=== PATIENT | female | born 1990 | race Caucasian/White ===

== ENCOUNTER 2019-01-25 02:26 | Outpatient (CLI) | payer BC, SELFPAY ==
[2019-01-25 02:49] VITALS: BMI 39.3
--- NOTE | 2019-02-02 08:14 | OB.TRI.NOTE ---
History of Present Illness Date of Service: 01/25/19 Was patient seen by the physician?: No Reason For Visit: DECREASED MOVEMENT Final SHAGGY: 03/12/19 Gestational age: 33w 3 days Allergies No Known Allergies Allergy (Verified 01/25/19 02:51) NST - FHR Rate Baby A Baseline: 135 bpm Variability:: Moderate Accelerations:: 15 x 15 Decelerations:: None NST Reactive:: Yes FHR Category:: Category I Uterine Activity:: irritability Impression/Plan 29-year-old primigravida at 33-3/7 weeks gestation for decreased movement. Nonstress test is reactive and reassuring. Discharge home with kick counts and to follow-up in the office as scheduled or as needed
== END 2019-01-25 04:00 | disposition home or self-care (01) ==
LOC: WPOUT 02:38 → WP 02:38
PROVIDERS: Referring Provider Advanced Practice Midwife; Visit Provider Advanced Practice Midwife
DX: O36.8130 Decreased fetal movements, third trimester, not applicable or unspecified (principal); Z3A.33 33 weeks gestation of pregnancy
CPT/HCPCS: 59025; 59050; 99218; G0378

== ENCOUNTER 2019-03-07 11:50 | Outpatient (CLI) | payer BC, SELFPAY ==
[2019-03-07 12:07] VITALS: BMI 37.9
--- NOTE | 2019-03-08 09:27 | OB.TRI.NOTE ---
- Problem List (1) Polyhydramnios affecting in third trimester Status: Acute History of Present Illness Date of Service: 03/07/19 Was patient seen by the physician?: No Reason For Visit: NST Date of Service: 03/07/19 Final SHAGGY: 03/12/19 Final SHAGGY Source: US <20 weeks Gestational age: 39 Weeks and 3 Days History of Present Illness: Patient was scheduled for IOL today for polyhydramnios, full census and inadequate nursing staffing noted so IOL deferred until morning of 03/08/19. Decision made to do NST surveillance to confirm well-being. Patient denies cramping/contractions, denies DFM, denies vaginal bleeding, denies vaginal discharge. Allergies codeine Adverse Reaction (Verified 03/07/19 12:09) Other headache Review of Systems Unable to obtain accurate/complete ROS d/t: See Nursing Note for ROS Physical Exam Vitals: VSS, Afebrile - see nursing note for PE NST - FHR Rate Baby A Baseline: 130 Variability:: Moderate Accelerations:: 15 x 15 Decelerations:: None NST Reactive:: Yes, Appropriate for gestational age FHR Category:: Category I Uterine Activity:: Ctx q 2-6 minutes, mildly to moderately palpable Impression/Plan 29 y/o @ 39+ weeks, Polyhydramnios, NST Reactive - Category I FHT P: 1) Discharge to home at this time - plan for IOL tomorrow AM for Polyhydramnios Huma CURTIS
== END 2019-03-07 13:30 | disposition home or self-care (01) ==
LOC: WPOUT 11:59 → WP 12:00
PROVIDERS: Referring Provider Advanced Practice Midwife; Visit Provider Advanced Practice Midwife
DX: O40.3XX0 Polyhydramnios, third trimester, not applicable or unspecified (principal); Z3A.39 39 weeks gestation of pregnancy
CPT/HCPCS: 59050; 99218; G0378

== ENCOUNTER 2019-03-08 06:52 | Inpatient (IN) | payer BC, SELFPAY ==
[2019-03-07 12:07] VITALS: BMI 37.9
[2019-03-08 07:49] VITALS: BMI 38.6
[2019-03-08] MEDS: Lactated Ringers 1,000 ML 50 ML IV ×3 (07:50→13:57)
[2019-03-08 08:26] LABS: Absolute Lymphocyte Count 1.35 X10^3/ul (0.83-4.51); Absolute Neutrophil Count 6.7 X10^3/uL (2.0-7.7); Basophil# 0.02 X10^3/uL; Basophil% 0.2 % (0-1); Eosinophil# 0.07 X10^3/uL; Eosinophils% 0.8 % (0-5); Hematocrit 37.3 % (37-47); Hemoglobin 12.8 g/dl (12.0-15.0); Lymphocyte # 1.35 X10^3/ul (4.0); Mean Corp Hgb Conc 34.3 g/gl (32-36); Mean Corpuscular Hgb 29.7 pg (27.0-32.0); Mean Corpuscular Volume 86.5 fL (81-99); Mean Platelet Vol. 11.7 fl (6.2-12.0); Monocyte# 0.89 X10^3/uL; Monocyte% 9.9 % (0-10); Neutrophil # 6.65 X10^3/uL (2.7-7.7); Neutrophil % 73.9 % (47-70); POSITIVE COUNT NO; POSITIVE DIFFERENTIAL NO; POSITIVE MORPHOLOGY NO; Platelet Count 263 K/mm3 (150-450); RBC Distribution Width CV 12.6 % (11.6-14.6); RBC Distribution Width SD 38.8 fl (35.1-43.9); Red Blood Count 4.31 M/mm3 (4.2-5.4)
[2019-03-08] MEDS: Oxytocin 30 units/NS 500 ml 30 UNITS/500 ML IV.SOLN IV (08:50)
--- NOTE | 2019-03-08 11:25 | PCM.HP.OB ---
- Problem List (1) Polyhydramnios affecting in third trimester Status: Acute History Date of Admission: 03/08/19 Final SHAGGY: 03/12/19 Final SHAGGY Source: US <20 weeks Gestational age: 39 Weeks and 3 Days History of this : This is a 29 year-old, G [1], P [0], at 39 weeks gestational age who presents for IOL for Polyhydramnios. Patient initiated care @ 7+5 weeks x 13 visits. care has been unremarkable save for diagnosis of Polyhydramnios at 36 weeks gestation. Allergies codeine Adverse Reaction (Verified 03/07/19 12:09) Other headache Home Medications: Home Medications Vits [Prenatabs FA] 1 tablet PO DAILY 01/25/19 Smoking Status: Former smoker Alcohol: None Number of Fetus(es): 1 Heart Tracing: Baseline 130, moderate variability, + accels, no decels TOCO Analysis: Ctx q 2-5 minutes, palpate mild to moderately strong History Past Pregnancies: Past Pregnancies Delivery Date Name GA/Weeks Outcome Route Weight Gender Labor Length Anesthesia Delivery Location Provider FOB Labs: GC/CT = Neg/Neg, CF Screen = Negative, Early 1 hour GCT = 112, O+, Abs Neg, HIV HR, Syphilis NR, Rubella Immune, HepBsAg Neg, Urine Culture Negative, Urine Tox Negative, CBC WNL x 2, Sequential Screen Negative, 1 hour GCT = 136 with subsequent normal 3 hour GTT, GBS Negative Expected Infant Delivery Method: Spontaneous Vaginal Describe any other labor & delivery plans:: NCB - though she is open to other pain management options Number of Visits: 13 Review of Systems Constitutional: Denies: Chills, Fever, Weight Change HEENT: Denies: Head Aches, Sinus Congestion, Sinus Drainage Cardiovascular: Denies: Chest Pain, Palpitations Respiratory: Denies: Cough, Shortness of breath at rest, Sputum production Gastrointestinal: Denies: Abdominal Pain, Nausea, Vomiting Genitourinary: Denies: Dysuria Musculoskeletal: Denies: Joint Pain, Joint Tenderness Skin: Denies: Rash, Wounds Neurological: Denies: Numbness, Tingling, Focal weakness Psychiatric: Denies: Anxiety, Depression, Homicidal Ideations, Suicidal Ideations Hematologic/ Lymphatic: Denies: Easy Bruising, Easy Bleeding Physical Exam Vitals: VSS, Afebrile - see nursing note for VS General: Alert, Oriented x3, No apparent distress HEENT: Atraumatic, Normocephalic. Negative for: Thyromegaly, Lymphadenopathy Cardiovascular: Regular rate, Regular Rhythm Lungs: Clear to auscultation Abdomen: Bowel Sounds Present, Gravid - EFW = 7.5# Neurological: Deep Tendon Reflexes 2+/4 and Symmetrical, Neuro grossly intact COMMUNICATIONS EQUIPMENT OPERATOR: Normal external genitalia. Negative for: Vulvar lesions Estimated gestational size: Appropriate for gestational size Presentation: Cephalic Cervix Dilation (cm): 5 - AROM for clear fluid Station: -2 Effacement (%): 80 Assessment/Plan All Active Problems Polyhydramnios affecting in third trimester (Acute) This is a 29 year-old, G [1], P [0], at 39 weeks gestational age, IOL for Polyhydramnios P: 1) Admit patient - AROM and IV pitocin done to facilitate IOL 2) Dr. Darian STODDARD back-up OB notified of admission 3) Continue present management at this time Huma CURTIS
[2019-03-08] MEDS: Nalbuphine 10 MG/ML Ampul IV (11:52)
[2019-03-08] MEDS: fentaNYL-bupivacaine (epidural) 100 ML BAG EPIDURAL (13:53)
--- NOTE | 2019-03-08 15:08 | PCM.PN.OB ---
Subjective: Patient reports increase in pressure and pain with contractions, Lt>Rt side. Decreased variability also noted. Patient reports increase in rectal and vaginal pressure too at this time. Decision for SVE at this time. Objective: VSS, Afebrile FHT baseline 115, mild to moderate variability, few accels, early decels and rare late decel noted Ctx q 2-4 minutes, palpate moderate to strong SVE = C/C/+1, + blood show noted - Physical Exam General: Alert, Oriented x3, Cooperative Neck: Supple Lungs: Normal air movement Abdomen: Soft, Non Tender, Gravid Weight: 232 lb Body Mass Index (BMI) 38.6 Laboratory Tests Past 24 Hrs 03/08/19 03/08/19 07:50 07:50 WBC 9.0 RBC 4.31 Hgb 12.8 Hct 37.3 MCV 86.5 MCH 29.7 MCHC 34.3 RDW 12.6 RDW Differential 38.8 Plt Count 263 MPV 11.7 Immature Gran % (Auto) 0.200 Neut % (Auto) 73.9 H Lymph % (Auto) 15.0 L [place] % (Auto) 9.9 Eos % (Auto) 0.8 Baso % (Auto) 0.2 Absolute Neuts (auto) 6.7 Absolute Lymphs (auto) 1.35 Total Counted Not Reportable Blood Type O POSITIVE Antibody Screen NEGATIVE Medical Necessity - Tobacco Use Smoking Status: Former smoker Assessment/Plan All Active Problems Polyhydramnios affecting in third trimester (Acute) 29 y/o @ 39+ weeks, IOL for Polyhydramnios, Category II FHT, Second Stage of Labor P: 1) Begin to push with maternal urge 2) Anticipate Huma Whitehead TERRAZZO INSTALLER-CNM
[2019-03-08] MEDS: Oxytocin 30 units/NS 500 ml 30 UNITS/500 ML IV.SOLN 334 UNITS IV (15:37)
--- NOTE | 2019-03-08 16:03 | PCM.OPRPT ---
Problem List (1) Polyhydramnios affecting in third trimester Status: Resolved Report of Operation Date of Procedure: 03/08/19 Pre-Operative Diagnosis: IOL for Polyhydramnios 39+ weeks Post-Operative Diagnosis: of viable girl baby Surgery/Procedure Performed:: Vaginal Delivery Vaginal Delivery Maternal Presentation: Medically Indicated Induction Method of Induction: Pitocin Medical Reason for Induction: Maternal Medical Condition: list: - Polyhydramnios Amniotic Fluid Description: Clear Final SHAGGY: 03/12/19 Final SHAGGY Source: US <20 weeks Gestational age: 39 Weeks and 3 Days Date of Procedure: 03/08/19 Pre-Operative Diagnosis: IOL @ 39+ weeks for polyhydramnios Post-Operative Diagnosis: of viable girl baby Surgery/ Procedure Performed: Spontaneous Vaginal Delivery Anesthesiologist: Yasmin Heaton Description of Procedure: Patient pushed well with urge to crown and delivered viable girl baby over intact perineum. Infant head delivered OA, restituted to DARYL and then LAVINIA-->ROT. Anterior shoulders delivered without difficulty followed by posterior shoulder and body. Infant immediately had vigorous cry and respirations, mouth and nose bulb suctioned. dried and stimulated on maternal chest. Apgars 8 and 9. Umbilical cord clamped and cut once it stopped pulsing by FOB. Placenta then delivered spontaneously via Rodriguez mechanism. Placenta intact with 3VC, placental triage WNL. Fundus initially boggy to massage, 3rd stage pitocin IV started per protocol until hemostasis acquired. St. cath of bladder with red rubber using aseptic technique done, 100cc clear yellow urine expressed. FF midline @ 3FB below umbilicus. EBL = 300cc. Upon inspection of vaginal vault, small 1st degree vaginal laceration just proximal to introitus repaired in the usual fashion under epidural analgesia using 3-0 vicryl suture. Sponge and needle count correct. Vaginal sweep negative. Baby to breast. [id number] and bonding initiated. Dr. Darian STODDARD OB back-up notified of delivery. Huma Whitehead DIRECTOR OF HOME CARE HOSPICE-CNM Presentation: Vertex, LAVINIA Placental Delivery Description: Spontaneous Placenta Disposition: [facility] Cord Vessel Description: 3 Vessels Cord Entanglement: None Estimated Blood Loss: 300 Infant A gender: Female (1 minute): 8 (5 minute): 9 Episiotomy Description: None Laceration: Vaginal Extension/lac, 1st degree Medications given after delivery: IV Pitocin Complications: None
[2019-03-08] MEDS: Oxytocin 30 units/NS 500 ml 30 UNITS/500 ML IV.SOLN 167 UNITS IV (16:07)
[2019-03-08] MEDS: 0.9% Saline Lock 10 ML Syringe IV (17:10)
[2019-03-08 22:00] VITALS: BP 145/72; PULSE 117; RESP 16; TEMP 36.1
[2019-03-09 00:19] VITALS: BP 124/69; PULSE 94; RESP 18; TEMP 36.8
[2019-03-09] MEDS: Ibuprofen 600 MG Tablet PO ×2 (01:12→14:52)
[2019-03-09 05:00] VITALS: BP 117/68; PULSE 86; RESP 18; TEMP 36.3
[2019-03-09 08:00] VITALS: BP 109/76; PULSE 94; RESP 18; TEMP 36.2; O2SAT 96
[2019-03-09 11:11] VITALS: BP 135/75; PULSE 107; RESP 20; TEMP 36.9; O2SAT 96
[2019-03-09] MEDS: Senna/Docusate Sodium 1 Tablet PO (11:23)
[2019-03-09 16:19] VITALS: BP 117/71; PULSE 80; RESP 20; TEMP 36.4; O2SAT 96
--- NOTE | 2019-03-09 16:51 | PCM.PN.OB ---
Subjective: Doing well per patient and nursing staff. Ambulating and taking PO without difficulty. Voiding and passing flatus. Denies headaches, visual changes, chest pain, increased SOB, increased vaginal bleeding or clots. Pain controlled. . Planning D/C home tomorrow. - Physical Exam General: Alert, Oriented x3 HEENT: Atraumatic, Normocephalic Lungs: Clear to auscultation, Normal air movement, No rhonchi, No wheeze Cardiovascular: Regular rate, Regular Rhythm, No murmurs Abdomen: Bowel Sounds Present, Soft, - - Fundus firm 2 below U Extremities: No edema Psych/Mental Status: Normal Affect, Appropriate Vital Signs Temp Pulse Resp BP Pulse Ox 97.5 F L 80 20 H 117/71 96 03/09/19 16:19 03/09/19 16:19 03/09/19 16:19 03/09/19 16:19 03/09/19 16:19 Oxygen Delivery Method Room Air Weight: 232 lb Body Mass Index (BMI) 38.6 Intake and Output for Last 24 Hours 03/07/19 03/08/19 03/09/19 23:59 23:59 23:59 Output Total 200 / 200 850 / 850 Balance -200 / -200 -850 / -850 Medical Necessity - Tobacco Use Smoking Status: Former smoker Assessment/Plan All Active Problems Polyhydramnios affecting in third trimester (Resolved) A: PPD #1 P: 1) Routine care 2) Pain management 3) Planning D/C home tomorrow.
[2019-03-09] MEDS: Acetaminophen 500 MG Tablet 1000 MG PO (19:44)
[2019-03-09 19:45] VITALS: BP 120/74; PULSE 85; RESP 18; TEMP 36.2
[2019-03-10 01:35] VITALS: BP 122/65; PULSE 90; RESP 18; TEMP 36.7
[2019-03-10] MEDS: Ibuprofen 600 MG Tablet PO (06:35)
--- NOTE | 2019-03-10 07:42 | DCINST_ITS ---
Discharge Diet: No Restrictions Discharge Activity: Return to Normal Activity, May not drive while taking narcotic pain medications., May Shower May resume sexual activity in: 4-6 weeks Additional Activity Instructions:: Nothing in the vagina for 4-6 weeks. You may return to work/school in 6 weeks. Call your doctor if your incision/area has: Continuous Slow Oozing, Sudden Increased Bleeding, Increased Pain/ Swelling, Increased Redness, Foul Smelling Discharge Call your doctor if you observe: Fever of 101 or Higher, Inability to urinate, Inability to have a bowel movement, Using more than one pad per hour Additional Instructions: If you experience any of the following, contact your healthcare provider. * Bleeding that soaks a pad every hour for 2 hours * Fever 100.4 or higher * Unrelieved incision or abdominal pain * Swelling, redness, discharge or bleeding from your incision or episiotomy site * Your incision begins to separate * Problems urinating (including inability to urinate or burning while urinating). * Visual changes * Severe headache * Flu-like symptoms * Pain or redness in one of both of your breasts * Pain, warmth, tenderness or swelling in your legs, especially the calf area * Frequent nausea and vomiting * Symptoms of depression or anxiety If you experience any of the following, call 911 or go to the nearest Emergency Room. * Chest pain * Problems breathing * Seizure activity * Partial or complete paralysis of a body part, slurred speech, weakness or drooping of the face, or a sudden inability to walk or hold your balance Allergies/Adverse Reactions: Allergies codeine Adverse Reaction (Verified 03/07/19 12:09) Other headache Medications to take at Discharge Vits [Prenatabs FA] 1 tablet PO DAILY 01/25/19 Please Follow Up With: Huma Whitehead CNM When: Call to make an appointment with your provider in 2 weeks and 6 weeks. Primary Care Physician: Care Physician,No Primary [Primary Care Provider] - Test Results: Test results from this visit will be discussed in further detail at your follow- up appointment, if applicable. Proposed Discharge Date: 03/10/19
--- NOTE | 2019-03-10 07:43 | PCM.PN.OB ---
Subjective: Patient sitting up in bed at this time, denies any issues/complaints or concerns today. Patient reports no issues with urination or ambulation. Reports that is going well, baby is latching without difficulty. Patient desires discharge today. Objective: VSS, Afebrile - see nursing note Nipples intact, no ecchymoses, a few fine cracks noted Abdomen NT x 4 quadrants, FF midline 2FB below umbilicus negative calf tenderness BL +2/4 reflexes in LE scant rubra lochia, intact perineum - Physical Exam General: Alert, Oriented x3, Cooperative HEENT: Atraumatic, Normocephalic Neck: Supple Lungs: Clear to auscultation, Normal air movement Cardiovascular: Regular rate, No murmurs Abdomen: Soft, Non Tender Extremities: No edema, Capillary Refill Less than 3 Seconds, No Calf Tenderness Skin: No rashes, No breakdown Musculoskeletal: No Tenderness to Palpation of Joints or Extremities Neurological: Cranial nerves II-XII grossly intact Psych/Mental Status: Normal Affect, Appropriate Vital Signs Temp Pulse Resp BP Pulse Ox 98.0 F 90 18 122/65 H 96 03/10/19 01:35 03/10/19 01:35 03/10/19 01:35 03/10/19 01:35 03/09/19 16:19 Oxygen Delivery Method Room Air Weight: 232 lb Body Mass Index (BMI) 38.6 Intake and Output for Last 24 Hours 03/08/19 03/09/19 03/10/19 23:59 23:59 23:59 Output Total 200 / 200 850 / 850 Balance -200 / -200 -850 / -850 Medical Necessity - Tobacco Use Smoking Status: Former smoker Assessment/Plan All Active Problems Polyhydramnios affecting in third trimester (Resolved) 29 y/o s/p , PPD #2, Normal PP Course P: 1) Discharge patient to home pending discharge 2) Anticipatory discharge teaching 3) RTC at 2 and 6 weeks PP to [facility] Huma CURTIS
[2019-03-10 08:11] VITALS: BP 128/78; PULSE 86; RESP 18; TEMP 37.1; O2SAT 96
--- NOTE | 2019-03-10 11:30 | CASEMGMT ---
Social Work Assessment Labor and Delivery Unit Date of Referral: 03/10/2019 Time of Referral: 917 Referred By: Ayaz Santos RN Date of Intervention: 03/10/2019 Time of Intervention: 1129 Reason for Referral: social issues related to information on certificate. History obtained from: Medical record and mother of baby (MOB) Maryann Root Household composition: MOB and reported father of baby (FOB) Hector Watson live together in an apartment. MOB reports home situation is safe and adequate. Intend for baby to return to this home. Patient's parent/guardian status: MOB is a 29 year old female and FOB is a 46 year old Male, together fo 2.5 years. FOB has 2 older children who are over the age of 18. Baby girl, Roshan Watson is the first child for MOB. MOB denies any form of abuse in relationship with FOB, denies any controlling or intimidation as well. Medical History: MOB is G1, P0 to 1 after delivering Roshan. MOB with care starting at 7 weeks gestation. Roshan born weighing 7 pounds 14 ounces. Apgars 8 and 9 at 1 and 5 minutes of life. Educational Status: MOB has a bachelor's degree in criminal justice with a focus on forensic psychology. MOB reports plan to go to graduate school in the future. MOB is able to read, write, and understand what is read. Financial Status: MOB works fulltime at [employer] and FOB works in a factory. Income is reported to be adequate. Supplies: MOB reports to have needed supplies including a crib, pack-n-play, car seat, clothing, diapers, wipes, and is planning to breast feed baby. Childcare/Caregiver(s): MOB will be primary caregiver and then when MOB returns to work the FOB will be going to 3rd shift so as to help alleviate the need to hire a caregiver for the baby. Transportation: No reported issues and reported to be adequate. Programs/Agencies Involved: MOB plans to use Dr. Pemberton for post hospital pediatric follow up. MOB denies any other agency involvement. Children Services/Legal Issues: No reported history. Behavioral Health Issues: Mental Health History: MOB reports history of depression and anxiety for which MOB has been in counseling and on Zoloft for. MOB is not longer on medication, but reports would consider again in the future if needed. MOB reports depression for self arose after the of TREVOR's sister unexpectedly 5 years ago. MOB denies any history for self about thoughts, plans, intent, or attempts at suicide. Substance Use History: MOB reports history of social alcohol use but not during . MOB denies any drug use or abuse history. Reports to be a former tobacco smoker. Family History: TREVOR has a sister with history of depression. TREVOR has another sister, Alea and for whom the baby is named after, that completed suicide by gun 5 years ago. Chart indicates TREVOR's father has history of substance use issues. Drug Screens: Negative drug screen prenatally on 07-29-2018. Family/Social Stressors: MOB and FOB moved from [place] where they met, to [place] about a year ago. MOB reports this change has been a good one however. One identified stressor at this time is that FOB has lied to MOB about his age, indicating that was 34 years old when in reality is 48 years old. This issue came to the forefront when certificate date of did not match the FOB's transfer driver's license. MOB reports that actually found out some time ago about FOB's real age, as saw the FOB's transfer driver's license. MOB reports never confronted FOB about this, but did some research to see if there was anything concerning that MOB should know. MOB reports that as the information is now out in the open, and has become in the open based on FOB's actions MOB plans to have further discussion with FOB when returning home. MOB denies that the age difference is something that bothers MOB, but just wonders what would make someone not be truthful about their age. MOB reports to feel safe with FOB, reports FOB is supportive and helpful, no safety concerns. Support Systems: MOB reports FOB is a support. MOB's main support however for emotional support is MOB's mother. MOB's mother will be staying at the home for a couple of nights to help MOB and FOB transition home with baby. Depression/Shaken Baby/Safe Sleeping : MOB reports awareness of shaken baby prevention and safe sleeping. MOB educated to depression, risk factors present, and importance of seeking out help and support. MOB reports openness to seeking out counseling and medication again if needed in the future. At this time MOB reports to feel good, denies depression and anxiety. MOB reports to feel connected to the baby as well. ASSESSMENT: Met with MOB one on one, asking MOB's mother and the FOB to leave the room when social work entered. Both left willingly. MOB pleasant and cooperative with social work visit. MOB acknowledges understanding of risk for depression, as well as awareness of importance to seek out help and support should symptoms arise. MOB open to accepting list of counseling resources for the area in case this would be needed. MOB reports to feel to have adequate support, denies safety concerns at home, and reports intent to talk with FOB about the issues of lying about age and working through this matter. MOB reports to have adequate supplies to car for baby and denies any needs for home going. MOB accepting of information on [facility] and [place] nurse visit in [facility], but declines actual referral. MOB also interested in WIC, so provided income guidelines for MOB to look into. MOB held baby, was gentle and attentive during social work visit. MOB held good eye contact, was pleasant though affect slightly constricted. MOB did smile at appropriate times and showed bonding cues with baby (gazing, smiled, and touched baby). PLAN: MOB and baby to home with support from FOB and MOB's mother. MOB has been given community resource list for [facility], depression packet, counseling options, nurse and [facility] information. No other services requested or indicated. -JULISA Rosales, VP SALES
[2019-03-10 11:49] VITALS: BP 128/80; PULSE 89; RESP 18; TEMP 36.6
== END 2019-03-10 12:40 | disposition home or self-care (01) | DRG 807 ==
PROVIDERS: Admitting Provider Obstetrics & Gynecology; Visit Provider Obstetrics & Gynecology
DX: O40.3XX0 Polyhydramnios, third trimester, not applicable or unspecified (principal); O70.0 First degree perineal laceration during delivery; Z87.891 Personal history of nicotine dependence; Z3A.39 39 weeks gestation of pregnancy; Z37.0 Single live birth
CPT/HCPCS: 59025; 59050; 85025; 86850; 86900; 99218; J7120; A4216; G0378

== ENCOUNTER → 2021-05-17 | Outpatient (CLI) | payer BC, SELFPAY ==
[2021-05-17 13:36] LABS: Thyroid Stim Hormone (TSH) 1.17 uIU/mL (0.358-3.74)
== END | disposition home or self-care (01) ==
LOC: LABSPEC 13:10
PROVIDERS: Visit Provider Nurse Practitioner
DX: R00.2 Palpitations (principal)
CPT/HCPCS: 84443

== ENCOUNTER 2021-06-18 22:37 | Outpatient (CLI) | payer BC, SELFPAY ==
[2021-06-18 22:55] VITALS: BP 145/72; PULSE 106
[2021-06-18 22:57] VITALS: PULSE 109; O2SAT 97
[2021-06-18 22:58] VITALS: TEMP 37.1
[2021-06-18 23:20] VITALS: BMI 35.4
[2021-06-18 23:23] LABS: Color, Urine Yellow (Yellow); Glucose, Dipstick Normal (Normal); Leukocyte Esterase-Dipstick 500 /ul (Negative); Nitrite-Dipstick Negative (Negative); Occult Blood-Urine 10 /ul (Negative); Protein-Dipstick 15 mg/dl (Negative); Specific Gravity, Urine 1.025 (1.002-1.030); Urine Bilirubin Dipstick Negative (Negative); Urine Clarity Cloudy (Clear); Urine Urobilinogen Normal (Normal)
[2021-06-18 23:31] LABS: Ketone-Dipstick 150 mg/dl (Negative)
--- NOTE | 2021-06-27 22:13 | OB.TRI.NOTE ---
HPI - General HPI Narrative JESSICA RANDOLPH, is a 31 F who presents for ctxs on 06/18/21. Maternal Data Information Final SHAGGY: 06/29/21 Gestational age: 38&3 PFSH PFSH Home Medications Prenatabs FA 1 tab PO DAILY 01/25/19 [History Last Taken 06/18/21 09:00] Allergy/AdvReac Type Severity Reaction Status Date / Time codeine AdvReac Other Verified 06/18/21 22:51 Social History Smoking Status: Former smoker History Elective abortions Hx Para 0 Spontaneous abortions Hx # Term Pregnancies Ectopic pregnancies Hx # Pregnancies Multiple births # of living children NST FHR Rate Baby A Baseline: 125 Variability:: Moderate Decelerations:: Variable NST Reactive:: Yes Uterine Activity:: Q 2minutes to irregular Assessment & Plan (1) False labor: PLAN: Reactive NST for false labor
== END 2021-06-18 23:55 | disposition home or self-care (01) ==
LOC: WPOUT 22:49 → WP 22:50
PROVIDERS: Visit Provider Obstetrics & Gynecology
DX: O47.1 False labor at or after 37 completed weeks of gestation (principal); Z87.891 Personal history of nicotine dependence; Z3A.38 38 weeks gestation of pregnancy
CPT/HCPCS: 59025; 59050; 81002; 99218; G0378

== ENCOUNTER 2021-07-06 07:00 | Inpatient (IN) | payer BC, SELFPAY ==
[2021-07-06] VITALS (39 sets, daily range): BP systolic 105–135; BP diastolic 54–76; PULSE 71–110; RESP 16; TEMP 36.3–36.8; O2SAT 98–99; BMI 34.8
[2021-07-06] MEDS: Lactated Ringers 1,000 ML 50 ML IV (07:50)
[2021-07-06] MEDS: Oxytocin 30 units/NS 500 ml 30 UNITS/500 ML IV.SOLN IV (08:06)
[2021-07-06 08:12] LABS: Absolute Lymphocyte Count 1.04 X10^3/uL (0.83-4.51); Absolute Neutrophil Count 5.9 X10^3/uL (2.0-7.7); Basophil# 0.03 X10^3/uL; Basophil% 0.4 % (0-1); Eosinophil# 0.07 X10^3/uL; Eosinophils% 0.9 % (0-5); Hematocrit 31.8 % (37-47); Hemoglobin 10.6 g/dL (12.0-15.0); Lymphocyte # 1.04 X10^3/ul (0.83-4.51); Lymphocyte % 13.4 % (19-41); Mean Corp Hgb Conc 33.3 g/dL (32-36); Mean Corpuscular Hgb 29.7 pg (27.0-32.0); Mean Corpuscular Volume 89.1 fL (81-99); Mean Platelet Vol. 11.8 fl (6.2-12.0); Monocyte# 0.67 X10^3/uL; Monocyte% 8.6 % (0-10); NRBC Flagged by Analyzer 0 % (0-5); Neutrophil # 5.93 X10^3/uL (2.7-7.7); Neutrophil % 76.1 % (47-70); Platelet Count 244 K/mm3 (150-450); RBC Distribution Width CV 12.2 % (11.6-14.6); RBC Distribution Width SD 39.6 fl (35.1-43.9); Red Blood Count 3.57 M/mm3 (4.2-5.4); White Blood Count 7.8 K/mm3 (4.4-11.0)
--- NOTE | 2021-07-06 08:24 | PCM.HP.OB ---
HPI - General General Date of Admission: 07/06/21 HPI Narrative JESSICA RANDOLPH, is a 31 F who presents for a scheduled IOL at 41 wks. Maternal Data Information SHAGGY Calculator Estimated Delivery Date Method Current WG Current Estimate 06/29/21 Ultrasound #1 41w 0d PFSH PFSH Medical History (Updated 07/06/21 @ 08:[address] Lety Rios, DO) Anxiety Breast disorder Depression Headache Polyhydramnios Home Medications Prenatabs FA 1 tab PO DAILY 01/25/19 [History Last Taken 07/06/21 06:00] Allergy/AdvReac Type Severity Reaction Status Date / Time codeine AdvReac Other Verified 07/06/21 07:49 Surgical History (Updated 07/06/21 @ 07:55 by Chante Hidalgo) History of surgery Social History Smoking Status: Former smoker History Elective abortions Hx Para 0 Spontaneous abortions Hx # Term Pregnancies Ectopic pregnancies Hx # Pregnancies Multiple births # of living children NST FHR Rate Baby A Baseline: 130 Variability:: Moderate Accelerations:: 15 x 15 Decelerations:: None NST Reactive:: Yes FHR Category:: Category I Uterine Activity:: No ctx's Vital Signs Vital Signs Vital Signs: 07/06/21 07:39 Temperature 97.9 F Temperature Source Temporal Pulse Rate 87 Blood Pressure 134/73 H BP Systolic 134 BP Diastolic 73 Pulse Ox 98 Weight Weight: 203 lb Body Mass Index (BMI) 34.8 Labs Labs Labs: Blood Type O POSITIVE Antibody Screen NEGATIVE Hct 31.8 % (37-47) L Hgb 10.6 g/dL (12.0-15.0) L Rhogam given: No Assessment & Plan (1) 41 weeks gestation of : PLAN: Pt presents for scheduled IOL at 41w0d. - Routine intrapartum care - Epidural PRN - GBS negative - Pitocin, AROM - Pelvis adequate and EFW expected to be < 4500 g - Anticipate
[2021-07-06] MEDS: Lactated Ringers 500 ML 999 ML IV ×3 (08:48→12:39)
[2021-07-06] MEDS: fentaNYL-bupivacaine (epidural) 100 ML BAG EPIDURAL (10:15)
[2021-07-06] MEDS: Acetaminophen 500 MG Tablet PO (11:15)
--- NOTE | 2021-07-06 12:36 | PCM.PN.BLA ---
Progress Note At bedside to check on patient. She is resting. She feels well. Assessment & Plan Assessment/Plan (1) 41 weeks gestation of : PLAN: Cervix is 4/50 and -1 station. AROM performed in usual fashion for a moderate amount of clear and bloody fluid. IUPC placed. Patient tolerated well. Category 1 tracing. Continued titration of Pitocin. Anticipate vaginal delivery.
[2021-07-06] MEDS: Lactated Ringers 1,000 ML 200 ML IV (14:47)
[2021-07-06] MEDS: Oxytocin 30 units/NS 500 ml 30 UNITS/500 ML IV.SOLN 334 UNITS IV (14:51)
--- NOTE | 2021-07-06 15:04 | PCM.OP.BLANK ---
Problems Associated Problem List Diagnoses (1) 41 weeks gestation of : Operative Report Date of Procedure: 07/06/21 The patient was complete and pushing. Head of infant was delivered in occiput anterior position. A loose nuchal cord x1 was noted and infant was delivered through the nuchal cord. The anterior shoulder was delivered with gentle traction, followed by the posterior shoulder and body of the infant without any force or delay. A viable female was delivered atraumatically and placed on maternal abdomen. The cord was clamped and cut after only a short delay by the father of the baby. The placenta was delivered with fundal massage and noted to be normal-appearing and intact. Uterus was explored x1 and cleared of all clot. Uterus was firm and bleeding hemostatic. A first-degree vaginal laceration was repaired with 3-0 Vicryl in usual fashion. Sponge and needle counts were correct. EBL 300 cc Apgars 8,9 1st degree vaginal laceration Loose nuchal cord x 1
[2021-07-06] MEDS: Ibuprofen 600 MG Tablet PO (19:45)
[2021-07-07] VITALS (13 sets, daily range): BP systolic 106–142; BP diastolic 55–71; PULSE 59–96; RESP 16–18; TEMP 36.2–36.6; O2SAT 97–98
[2021-07-07] MEDS: Acetaminophen 500 MG Tablet 1000 MG PO ×4 (00:21→22:20)
[2021-07-07] MEDS: Ibuprofen 600 MG Tablet PO ×3 (03:22→18:11)
--- NOTE | 2021-07-07 08:48 | PCM.PN.OB ---
Subjective Subjective Doing well per patient and nursing staff. Ambulating and taking PO without difficulty. Voiding and passing flatus. Pain controlled. , services for assistance. Denies headache, visual changes, chest pain, shortness of breath, leg pain or increased bleeding. Lochia normal. Planning D/C home today. Objective Data Objective Data Vital Signs: Vital Signs Temp Pulse Resp BP Pulse Ox 97.1 F L 96 16 106/68 97 07/07/21 07:37 07/07/21 07:37 07/07/21 07:37 07/07/21 07:37 07/07/21 00:23 Oxygen Delivery Method Room Air Weight: 203 lb Body Mass Index (BMI) 34.8 Intake & Output: Intake and Output for Last 24 Hours 07/05/21 07/06/21 07/07/21 23:59 23:59 23:59 Intake Total 3077.77 / 3077.77 Output Total 1200 / 1200 75 / 75 Balance 1877.77 / 1877.77 -75 / -75 Lab / Micro Data Result Diagrams: 07/06/21 07:50 Labs: Laboratory Results - last 24 hr 07/06/21 07:50: Blood Type O POSITIVE, Antibody Screen NEGATIVE ROS Constitutional Constitutional: Reports systems reviewed and no addt'l complaints, except as documented; Denies headache(s) Eyes Eyes: Denies acute decrease in peripheral vision, blurry vision or change in vision ENT HEENT: Reports systems reviewed and no addt'l complaints, except as documented Cardiovascular Cardiovascular: Denies chest pain or dizziness Respiratory/Chest Respiratory/Chest: Denies cough, dyspnea, dyspnea on exertion, shortness of breath at rest or shortness of breath with exertion Gastrointestinal Gastrointestinal: Denies abdominal pain, diarrhea, nausea or vomiting Genitourinary Genitourinary: Denies abdominal discomfort Musculoskeletal Musculoskeletal: Denies limited range of motion Integumentary Integumentary: Reports systems reviewed and no addt'l complaints, except as documented Neurologic Neurologic: Reports systems reviewed and no addt'l complaints, except as documented Psychiatric Psychiatric: Reports systems reviewed and no addt'l complaints, except as documented Endocrine Endocrinology: Reports systems reviewed and no addt'l complaints, except as documented Hematologic/Lymphatic Hematologic/Lymphatic: Reports systems reviewed and no addt'l complaints, except as documented Allergic/Immunologic Allergic/Immunologic: Reports systems reviewed and no addt'l complaints, except as documented Physical Exam Const alert and oriented x3 General Appearance: cooperative Orientation / Consciousness: awake, oriented to person, oriented to place and oriented to time Exam Limitations: no limitations HEENT normocephalic Head and Scalp: normal to inspection, normocephalic and atraumatic Face and Sinus: normal facial exam Eyes General Eye: normal appearance of both eyes Neck full ROM Chest Chest: symmetrical chest wall rise Resp normal respiratory effort and normal air movement Auscultation: clear to auscultation bilaterally Cardio regular rate, regular rhythm, S1 normal heart sound, S2 normal heart sound, no murmurs, no rub, no gallops and no clicks GI normal to inspection, nondistended, normoactive bowel sounds and non-tender GI Narrative: Fundus firm 3 below U appearance of the vagina normal Bladder / Kidney Exam: no CVA tenderness Back/Spine normal ROM Extremity normal to inspection and full ROM Extremity Narrative: Dillon's negative bilaterally Skin no rashes or lesions noted Neuro oriented x3, CN's II-XII intact bilaterally and moves all extremities Sensorium / Orientation: awake, alert and oriented to person Motor Exam: clonus absent Deep Tendon Reflexes: Rt Patellar (L4): 2+ and Lt Patellar (L4): 2+ Assessment & Plan (1) Vaginal delivery: PLAN: 1. Routine and breast-feeding instructions. 2. Pain management, ibuprofen 600 mg every 6 hours as needed for pain 3. Blood pressure stable, had one elevated this morning and was talking during assessment, repeat normal. Reviewed preeclampsia symptoms and when to call 4. Follow-up for 2-week virtual visit in 6-week in office 5. [place] home
--- NOTE | 2021-07-07 08:52 | PCM.DC.SUM ---
Providers Date of Admission: 07/06/21 Primary Care Physician: Jaycee Primary Care Phys Reason For Visit: VAG DELIVERY Diagnosis Discharge Diagnosis (1) Vaginal delivery: Status: Acute Code(s): O80 - Encounter for full-term uncomplicated delivery Medications at Discharge Home Medications Prenatabs FA 1 tab PO DAILY 01/25/19 acetaminophen 1,000 mg PO Q6H PRN PRN #0 tab 07/07/21 benzocaine-menthol [Dermoplast (with menthol)] 1 spray TOPICAL TID PRN PRN #0 g 07/07/21 ibuprofen 600 mg PO Q6H PRN PRN #30 tab 07/07/21 Weight / BMI Weight Weight: 203 lb Body Mass Index (BMI) 34.8 ABG / Lab / Microbiology Data Result Diagrams: 07/06/21 07:50 Laboratory: Laboratory Results - last 24 hr 07/06/21 07:50: Blood Type O POSITIVE, Antibody Screen NEGATIVE D/C Instructions Discharge Diet: No restrictions Discharge Activity: Return to Normal Activity, May Drive, May Shower and May Take a Tub Bath May resume sexual activity in: 6 weeks Weight Bearing Status: Full weight bearing Lifting Restricted to (Lbs): 50 Call your doctor if your incision/area has: Sudden Increased Bleeding, Increased Pain/ Swelling, Increased Redness and Foul Smelling Discharge Call your doctor if you observe: Fever of 101 or Higher, Inability to urinate, Inability to have a bowel movement, Using more than 1 pad per hour, Shortness of breath, Dizziness, Fainting spells, Chest pain, Increased palpitations (irregular heartbeat), Calf discomfort and Uncontrolled pain Please Follow Up With: jeffrey webber APRN, CNM When: 2 weeks virtual visit and 6 weeks in office Meaningful Use Info Meaningful Use Diagnoses (Choose all that apply): None applicable Discharge Plan Admission Admit Date/Time: 07/06/21 07:00 Primary Reason for Your Visit: Attending Provider: Lety Rios Primary Care Provider: Care Physician,No Primary Consulting Providers: Rachael Farmer Instructions Patient Instructions: After a Vaginal , Nutrition While Discharge Orders/Prescriptions Prescriptions: New acetaminophen 500 mg Tablet 1,000 mg PO Q6H PRN PRN (Reason: Pain 1-10 Or Fever) Qty: 0 RF: 0 ibuprofen 600 mg Tablet 600 mg PO Q6H PRN PRN (Reason: Pain Score 1-3) Qty: 30 RF: 0 Dermoplast (with menthol) 20-0.5 % Aerosol 1 spray topical TID PRN PRN (Reason: perineal discomfort) Qty: 0 RF: 0 Continued Prenatabs FA 1 TABLET tablet 1 tab PO DAILY RF: 0 Referrals / Follow Up: Care Physician,No Primary [Primary Care Provider] - Disposition Disposition (needs filled in before D/C Order can be placed): Home, Self Care
--- NOTE | 2021-07-07 16:50 | CASEMGMT ---
Social Work Brief Assessment - Labor and Delivery Unit Patient Address: [address] [place] [address] Phone number: [phone] Date of Referral/Notification: 07.06.2021 Time of Referral: 173 Referred By: Dr. Ma Reason for Referral: Maternal history of depression and anxiety Date of Intervention: 07.07.2021 Time of Intervention: 1650 Informant: Medical records, including prior social work assessment from prior delivery in 2019, mother of baby (MOB) Maryann Root, and father of baby (FOB) Hector Watson. History: Baby girl Daysi Watson was born on 07.06.2019 to MOB Maryann Root (age 29) and FOB Hector Watson (age 48). MOB is G2, P1 to 2 after delivering Daysi. Older child at home is Roshan Watson, born on 03.08.2019. FOB has 2 adult children from prior relationships. M OB and FOB are . Both parents work at [employer] in [place]. Finances are reported as adequate. TREVOR has a bachelors degree in criminal justice with a minor in forensic psychology. Maternal history of anxiety and depression, diagnosed after TREVOR's sister in 2013. TREVOR has history of counseling and treatment with Zoloft, though no current treatment. No reported history for MOB regarding thoughts, plans, intent, or attempts at suicide. TREVOR has a sister with history depression, another sister, Alea, who by suicide (gunshot wound in 2013), and TREVOR's father with history of substance use issues. TREVOR's primary support system identified as the FOB and TREVOR's uncle, who is like a father figure to the MOB. No reports or indication of domestic violence issues, MOB previously denied to this machine sign writer and also denied upon this admission to nursing. Both parents deny any substance use issues, or use during . Maternal drug screen negative on 11.14.2020. No further testing performed. TREVOR is a former tobacco smoker. Social alcohol use, but not during . care good, starting at 7 weeks gestation. Assessment: Met with MOB and FOB for assessment. MOB talkative and reports to be feeling good right now. Denies any concerns about emotional health issues, but reports self awareness of risk for mood and anxiety issues. MOB reports would be willing to go back to counseling if needed, or get back on medications. MOB to feel to have adequate support system, and that finances are better as compared to delivery in 2019, which MOB reports has been a stress reliever. FOB will be off of work for 2 weeks to help at home. MOB reports to have all needed supplies to care for baby. Reports stable housing, no issues with transportation. Denies need for referrals to WIC. Educated to mood and anxiety disorders, risk factors and importance of seeking out help and support should symptoms arise. Also mentioned that fathers can experience this as well. Information provided for home going, including resources. Information on shaken baby, safe sleeping and help me grow also provided. No voiced concerns by nursing regarding parent interactions or parent/child interactions or bonding. FOB on phone during social work visit, but intermittently participate din conversation. MOB held good eye contact, relaxed motor activity, attentive to baby. Expressed appreciation for information provided this date. Plan: MOB and baby to home when ready. Resources provided for home going related to mood and anxiety disorders. No further needs requested or indicated. -JULISA Rosales, DIGITAL CAMPAIGN MANAGER
[2021-07-08 02:01] VITALS: TEMP 36.3
[2021-07-08 02:02] VITALS: BP 127/71; PULSE 74
[2021-07-08 02:03] VITALS: BP 127/71; PULSE 74; RESP 16; TEMP 36.3
[2021-07-08] MEDS: Ibuprofen 600 MG Tablet PO (04:50)
[2021-07-08 08:14] VITALS: BP 121/68; PULSE 75
[2021-07-08 08:15] VITALS: BP 121/68; PULSE 75; RESP 18; TEMP 36.4
--- NOTE | 2021-07-08 09:07 | PN.OBGYN_ITS ---
Subjective Subjective PPD #2. Decided to stay additional night and did not discharge home. Doing well per patient and nursing staff. Ambulating and taking PO without difficulty. Voiding and passing flatus. Pain controlled. , services for assistance. Denies headache, visual changes, chest pain, shortness of breath, leg pain or increased bleeding. Lochia normal. Planning discharge home today. Objective Data Objective Data Vital Signs: Vital Signs Temp Pulse Resp BP Pulse Ox 97.5 F L 75 18 121/68 H 98 07/08/21 08:15 07/08/21 08:15 07/08/21 08:15 07/08/21 08:15 07/07/21 16:22 Oxygen Delivery Method Room Air Weight: 203 lb Body Mass Index (BMI) 34.8 Intake & Output: Intake and Output for Last 24 Hours 07/06/21 07/07/21 07/08/21 23:59 23:59 23:59 Intake Total 3077.77 / 3077.77 Output Total 1200 / 1200 75 / 75 Balance 1877.77 / 1877.77 -75 / -75 Lab / Micro Data Result Diagrams: 07/06/21 07:50 ROS Constitutional Constitutional: Reports systems reviewed and no addt'l complaints, except as do cumented; Denies headache(s) Eyes Eyes: Denies acute decrease in peripheral vision, blurry vision or change in vision ENT HEENT: Reports systems reviewed and no addt'l complaints, except as documented Cardiovascular Cardiovascular: Denies chest pain or dizziness Respiratory/Chest Respiratory/Chest: Denies cough, dyspnea, dyspnea on exertion, shortness of breath at rest or shortness of breath with exertion Gastrointestinal Gastrointestinal: Denies abdominal pain, diarrhea, nausea or vomiting Genitourinary Genitourinary: Denies abdominal discomfort Musculoskeletal Musculoskeletal: Denies limited range of motion Integumentary Integumentary: Reports systems reviewed and no addt'l complaints, except as documented Neurologic Neurologic: Reports systems reviewed and no addt'l complaints, except as documented Psychiatric Psychiatric: Reports systems reviewed and no addt'l complaints, except as documented Endocrine Endocrinology: Reports systems reviewed and no addt'l complaints, except as documented Hematologic/Lymphatic Hematologic/Lymphatic: Reports systems reviewed and no addt'l complaints, except as documented Allergic/Immunologic Allergic/Immunologic: Reports systems reviewed and no addt'l complaints, except as documented Physical Exam Const alert and oriented x3 General Appearance: cooperative Orientation / Consciousness: awake, oriented to person, oriented to place and oriented to time Exam Limitations: no limitations HEENT normocephalic Head and Scalp: normal to inspection, normocephalic and atraumatic Face and Sinus: normal facial exam Eyes General Eye: normal appearance of both eyes Neck full ROM Chest Chest: symmetrical chest wall rise Resp normal respiratory effort and normal air movement Auscultation: clear to auscultation bilaterally Cardio regular rate, regular rhythm, S1 normal heart sound, S2 normal heart sound, no murmurs, no rub, no gallops and no clicks GI normal to inspection, nondistended, normoactive bowel sounds and non-tender appearance of the vagina normal Narrative: fundus firm 2 below U Bladder / Kidney Exam: no CVA tenderness Back/Spine normal ROM Extremity normal to inspection and full ROM Skin no rashes or lesions noted Neuro oriented x3, CN's II-XII intact bilaterally and moves all extremities Sensorium / Orientation: awake, alert and oriented to person Motor Exam: clonus absent Deep Tendon Reflexes: Rt Patellar (L4): 2+ and Lt Patellar (L4): 2+ Assessment & Plan (1) Vaginal delivery: PLAN: 1. Routine and breast-feeding instructions. 2. Pain management, ibuprofen 600 mg every 6 hours as needed for pain 3. Blood pressure stable. Reviewed preeclampsia symptoms and when to call 4. Follow-up for 2-week virtual visit in 6-week in office 5. [place] home
== END 2021-07-08 11:40 | disposition home or self-care (01) | DRG 807 ==
PROVIDERS: Admitting Provider Obstetrics & Gynecology; Visit Provider Obstetrics & Gynecology
DX: O48.0 Post-term pregnancy (principal); O70.0 First degree perineal laceration during delivery; O69.81X0 Labor and delivery complicated by cord around neck, without compression, not applicable or unspecified; Z87.891 Personal history of nicotine dependence; Z3A.41 41 weeks gestation of pregnancy; Z37.0 Single live birth
CPT/HCPCS: 59025; 59050; 85025; 86850; 86900; 86901; 99218; J7120; G0378